=== PATIENT | female | born 1980 | race Caucasian/White ===

== ENCOUNTER 2017-06-25 08:26 | Emergency (ER) | payer OTHER ==
[~2017-06-25] VITALS: Ht 165.1 cm; Wt 64.1 kg
[~2017-06-25 08:26] MED LIST: INDERAL20 MG PO; NAPROSYN250 MG PO; PEN-VEE K,VEET500 MG PO; ULTRAM50 MG PO
[2017-06-25 09:13] LABS: MCH 30.2 PG (29.0-34.0); MCHC 35.6 G/DL (30.0-36.0); MCV 84.9 FL (83-99); MEAN PLAT.VOLUME 11.9 uM^3 (9.5-12.4); PLATELET COUNT 293 K/uL (156-360); RBC DIS.WIDTH-CV 12.3 % (11.8-14.6); RBC DIS.WIDTH-SD 37.6 % (39-53); RED BLOOD COUNT 4.83 M/uL (3.80-5.20); WHITE BLOOD COUNT 11.3 K/uL (4.1-10.2)
[2017-06-25 09:23] LABS: CHLORIDE 107 mEq/L (99-109)
[2017-06-25 09:24] LABS: POTASSIUM 3.5 mEq/L (3.7-5.4); SODIUM 141 mEq/L (136-147)
[2017-06-25 09:26] LABS: GLUCOSE 139 mg/dL (70-99)
[2017-06-25 09:27] LABS: ANION GAP 9 MEQ/L (2-14)
[2017-06-25 09:28] LABS: TOTAL BILIRUBIN 0.6 mg/dL (0.0-1.0)
[2017-06-25 09:29] LABS: ALKALINE PHOSPHATASE 73 IU/L (3-129); GFR ESTIMATE (CALCULATED) > 59 mL/min/
[2017-06-25 09:31] LABS: UREA NITROGEN (BUN) 9 mg/dL (9-23)
[2017-06-25 09:40] LABS: QUANTITATIVE HCG < 4.0 MIU/ML
[2017-06-25 09:52] LABS: ADD MIUA? YES; BILIRUBIN NEGATIVE; BLOOD NEGATIVE; COLOR AMBER ((YELLOW)); GLUCOSE (STRIP) NEGATIVE; KETONES 20; LEUKOCYTES NEGATIVE; NITRITE NEGATIVE; PROTEIN (STRIP) 30; SPECIFIC GRAVITY 1.026 (1.000-1.030); UROBILINOGEN 0.2 MG/DL (0.2-1.0)
[2017-06-25 10:05] LABS: AMORPHOUS PHOSPHATE CRYSTALS 3+; BACTERIA 2+ /HPF; CRYSTALS PRESENT; EPITHELIAL CELLS NONE SEEN /HPF; MUCUS NONE SEEN /LPF; RED BLOOD CELLS 0-5 /HPF (0-5); UCUL ADDED? YES; WHITE BLOOD CELLS 0-5 /HPF (0-5)
[2017-06-25] MEDS ORDERED: PEPCID20 MG PO (10:57)
[2017-06-25] MEDS ORDERED: CARAFATE1 GM PO (10:57)
[2017-06-25] MEDS ORDERED: ZOFRAN ODT8 MG PO (10:57)
[2017-06-25 11:00] VITALS: BP 149/74
== END 2017-06-25 11:08 | disposition home or self-care (01) ==
LOC: EME 08:26
DX: R11.2 Nausea with vomiting, unspecified (principal); R19.7 Diarrhea, unspecified; F17.200 Nicotine dependence, unspecified, uncomplicated
CPT/HCPCS: 80053; 81003; 84702; 85027; 87086; 99281; 99283

== ENCOUNTER 2018-02-22 05:20 | Emergency (ER) | payer OTHER ==
[~2018-02-22] VITALS: Ht 167.6 cm; Wt 61.1 kg
[~2018-02-22 05:20] MED LIST changes: +CARAFATE1 GM PO; +PEPCID20 MG PO; +ZOFRAN ODT8 MG PO
[2018-02-22 06:50] LABS: HEMATOCRIT 41.4 % (36.0-46.0); HEMOGLOBIN 14.7 G/DL (11.9-15.5); MCH 30.5 PG (29.0-34.0); MCHC 35.5 G/DL (30.0-36.0); MCV 85.9 FL (83-99); RBC DIS.WIDTH-CV 12.6 % (11.8-14.6); RBC DIS.WIDTH-SD 39.1 % (39-53); RED BLOOD COUNT 4.82 M/uL (3.80-5.20); WHITE BLOOD COUNT 13.3 K/uL (4.1-10.2)
[2018-02-22 06:55] LABS: ALBUMIN 4.5 g/dL (3.2-4.8); CHLORIDE 103 mEq/L (99-109); SODIUM 138 mEq/L (136-147)
[2018-02-22 06:57] LABS: GLUCOSE 128 mg/dL (70-99); TOTAL PROTEIN 7.5 g/dL (6.4-8.3)
[2018-02-22 06:59] LABS: TOTAL BILIRUBIN 0.7 mg/dL (0.0-1.0)
[2018-02-22 07:01] LABS: ALKALINE PHOSPHATASE 72 IU/L (3-129); CREATININE 0.8 mg/dL (0.6-1.3); GFR ESTIMATE (CALCULATED) > 59 mL/min/
[2018-02-22 07:02] LABS: AST (GOT) 12 IU/L (2-34); UREA NITROGEN (BUN) 7 mg/dL (9-23)
[2018-02-22 07:03] LABS: DIRECT BILIRUBIN 0.2 mg/dL (0.0-0.3)
[2018-02-22 07:04] LABS: ALT (GPT) 15 IU/L (3-49); LIPASE 11 U/L (1.0-51.0)
[2018-02-22 07:11] LABS: QUANTITATIVE HCG < 4.0 MIU/ML
[2018-02-22 07:27] LABS: PLAT.SUFFICIENCY ADEQUATE; PLATELET COUNT 287 K/uL (156-360)
[2018-02-22] MEDS ORDERED: ZANTAC75 M1 PO (07:34)
[2018-02-22 07:40] VITALS: BP 160/100
== END 2018-02-22 07:40 | disposition home or self-care (01) ==
LOC: EME 05:20
PROVIDERS: Emergency Medicine
DX: K29.00 Acute gastritis without bleeding (principal); F17.200 Nicotine dependence, unspecified, uncomplicated
CPT/HCPCS: 80048; 80076; 83690; 84702; 85027; 99281; 99284